=== PATIENT | female | born 1960 | race Two or more races ===

== ENCOUNTER 2016-12-09 19:03 | Emergency (ER) | payer MEDICAID ==
[~2016-12-09 19:03] MED LIST: DAYQUIL
[2016-12-09 19:12] VITALS: BP 108/88
== END 2016-12-09 20:53 | disposition left against medical advice (07) ==
LOC: ER 19:06
DX: M25.561 Pain in right knee (principal); Z53.21 Procedure and treatment not carried out due to patient leaving prior to being seen by health care provider

== ENCOUNTER 2016-12-10 12:26 | Emergency (ER) | payer MEDICAID ==
[2016-12-10 13:08] VITALS: BP 139/56
== END 2016-12-10 13:42 | disposition home or self-care (01) ==
LOC: ER 12:26
DX: M17.11 Unilateral primary osteoarthritis, right knee (principal); G89.29 Other chronic pain

== ENCOUNTER 2017-06-20 17:48 | Emergency (ER) | payer MEDICAID ==
[~2017-06-20] VITALS: Ht 152.4 cm; Wt 96.6 kg
[2017-06-20 17:58] VITALS: BP 137/81
[2017-06-20 19:21] LABS: Basophils # (auto) 0.1 uL; Basophils % (auto) 0.6 % (0.0-2.0); Eosinophils # (auto) 0.2 uL; Eosinophils % (auto) 1.7 % (0.0-7.0); Hematocrit 41.7 % (36.0-46.0); Lymphocytes # (auto) 4.5 uL; Lymphocytes % (auto) 41.2 % (10.0-50.0); Mean Corpuscular Hemoglobin 30.6 pg (28.0-32.0); Mean Corpuscular Hgb Conc. 33.7 g/dL (32.0-36.0); Mean Corpuscular Volume 90.8 fL (80.0-100.0); Mean Platelet Volume 9.2 fL (6.9-10.8); Monocytes # (auto) 0.7 uL; Monocytes % (auto) 6.2 % (0.0-12.0); Neutrophils # (auto) 5.5 uL; Neutrophils % (auto) 50.3 % (37.0-80.0); Nucleated Red Blood Cells % 0.1 %; Platelet Count (auto) 235 10^3/uL (140-450); Red Cell Distribution Width 13.3 % (11.8-14.3); White Blood Cell 10.8 10^3/uL (4.4-10.8)
[2017-06-20 19:50] LABS: Albumin 3.4 g/dL (3.4-5.0); Anion Gap 11 (5-15); Calcium 8.6 mg/dL (8.5-10.1); Carbon Dioxide 27 mmol/L (21-32); Chloride 107 mmol/L (98-107); GFR African American 103 mL/min; GFR Non-African American 85 mL/min; Glucose 109 mg/dL (74-106); Magnesium 2.5 mg/dL (1.6-2.6); Potassium 3.9 mmol/L (3.5-5.1); Sodium 145 mmol/L (136-145)
[2017-06-20 19:52] LABS: Alkaline Phosphatase 125 U/L (45-117); Aspartate Aminotransferase 31 U/L (15-37); BUN/Creatinine Ratio 18.7; Bilirubin, Total 0.4 mg/dL (0.2-1.0); Blood Urea Nitrogen 14 mg/dL (7-18); Total Protein 7.5 g/dL (6.4-8.2)
== END 2017-06-21 00:54 | disposition left against medical advice (07) ==
LOC: ER 17:48
DX: R07.89 Other chest pain (principal); Z53.21 Procedure and treatment not carried out due to patient leaving prior to being seen by health care provider
CPT/HCPCS: 36415; 71020; 80053; 83735; 84484; 85025; 93005

== ENCOUNTER 2022-04-29 08:42 | Inpatient (IN) | payer MEDICAID ==
[2022-04-29] VITALS (11 sets, daily range): BP systolic 95–122; BP diastolic 43–68
[~2022-04-29] VITALS: Ht 152.4 cm; Wt 89.7 kg
[~2022-04-29 08:42] MED LIST changes: +ACET325T82 PO; -DAYQUIL; +GABA-339 PO; +IBUP800T26 PO
[2022-04-29] MEDS ORDERED: ceFAZolin 1GM/50ML 100 ML IV ONE (09:00)
[2022-04-29] MEDS ORDERED: fentaNYL CITRATE 100 MCG/2 ML VL ONE (09:18)
[2022-04-29] MEDS ORDERED: MIDAZOLAM HCL 2MG/2ML 2ml VIAL (1mg/ml) ONE ×2 (09:18→10:35)
[2022-04-29] MEDS ORDERED: TETRACAINE 1% INJ 2 ML VIAL IJ ONE ×2 (09:18→09:20)
[2022-04-29] MEDS ORDERED: TRANEXAMIC ACID 20 ML ONE (09:18)
[2022-04-29] MEDS ORDERED: ROPIVACAINE 0.5% (5MG/ML) 20ML AMPULE IJ ONE (09:18)
[2022-04-29] MEDS ORDERED: VANCOMYCIN HCL 1000 MG VL ONE (09:21)
[2022-04-29] MEDS ORDERED: MORPHINE SULF PF 5 MG/10 ML VIAL ONE (09:21)
[2022-04-29] MEDS ORDERED: EPINEPHrine HCL 1 MG/1 ML AMP ONE (09:28)
[2022-04-29] MEDS ORDERED: ONDANSETRON HCL 4 MG/2 ML VIAL IV PRN (10:30)
[2022-04-29] MEDS ORDERED: NALBUPHINE HCL 10 MG/1ml INJECTION SUBCUT ONE (10:30)
[2022-04-29] MEDS ORDERED: ePHEDrine SULFATE 50 MG/ML AMP IV PRN (10:30)
[2022-04-29] MEDS ORDERED: HYDROmorphone HCL 2 MG/ML VL/or syr IV PRN (10:30)
[2022-04-29] MEDS ORDERED: DexAMETHasone SOD PHOS 10MG/1ML VIAL INJ IV PRN (10:30)
[2022-04-29] MEDS ORDERED: METOCLOPRAMIDE HCL 5MG/ml INJ 2ml VIAL IV PRN (10:30)
[2022-04-29] MEDS ORDERED: NALOXONE HCL 0.4 MG/ML VIAL IV PRN (10:30)
[2022-04-29] MEDS ORDERED: MIDAZOLAM HCL 2MG/2ML 2ml VIAL (1mg/ml) IV PRN (10:30)
[2022-04-29] MEDS ORDERED: LABETALOL HCL 5 MG/ML 4ML SYRINGE IV PRN (10:30)
[2022-04-29] MEDS ORDERED: diphenhdrAMINE HCL 50 MG/1 ML VL IV PRN (10:30)
[2022-04-29] MEDS ORDERED: DexAMETHasone SOD PHOS 10MG/1ML VIAL INJ ONE (10:35)
[2022-04-29] MEDS ORDERED: PROPOFOL 10 MG/ML 20 ML IV ONE (10:35)
[2022-04-29] MEDS ORDERED: oxyCODONE HCL 5MG TAB PO PRN (11:45)
[2022-04-29] MEDS: D5W/LACTATED RINGERS 1,000 ML IV SCH ×2 (11:45→21:45)
[2022-04-29] MEDS: KETOROLAC TROMETH 30 MG/ML 1ML VIAL IV SCH ×3 (12:20→19:00)
[2022-04-29] MEDS: ceFAZolin 2 GM in D5W 5% 100 ML IV SCH ×2 (15:19→23:00)
[2022-04-29] MEDS: ONDANSETRON HCL 4 MG/2 ML VIAL IV PRN (16:34)
[2022-04-29] MEDS: ACETAMINOPHEN 325 MG TAB PO SCH ×2 (17:35→19:00)
[2022-04-29] MEDS: PREGABALIN 25 MG CAP PO SCH (22:22)
[2022-04-30] VITALS (20 sets, daily range): BP systolic 92–130; BP diastolic 53–64
[2022-04-30] MEDS: KETOROLAC TROMETH 30 MG/ML 1ML VIAL IV SCH ×3 (00:12→12:37)
[2022-04-30] MEDS: ACETAMINOPHEN 325 MG TAB PO SCH ×3 (00:12→12:37)
[2022-04-30] MEDS ORDERED: ceFAZolin 1GM/50ML 100 ML IV ONE (00:51)
[2022-04-30] MEDS: D5W/LACTATED RINGERS 1,000 ML IV SCH (07:45)
[2022-04-30] MEDS: oxyCODONE HCL 5MG TAB PO PRN ×2 (08:40→16:14)
[2022-04-30] MEDS: PREGABALIN 25 MG CAP PO SCH (09:52)
[2022-04-30] MEDS ORDERED: ASPirin 81 mg TAB PO SCH (10:00)
[2022-04-30 10:53] LABS: Basophils # (auto) 0 10 ^3/uL (0-0.2); Eosinophils # (auto) 0 10 ^3/uL (0-0.8); Hematocrit 36.9 % (36.0-46.0); Hemoglobin 11.9 g/dL (12.2-16.2); Lymphocytes # (auto) 2.3 10 ^3/uL (0.4-5.4); Lymphocytes % (auto) 13.6 % (10.0-50.0); Mean Corpuscular Hemoglobin 29.3 pg (28.0-32.0); Mean Corpuscular Hgb Conc. 32.3 g/dL (32.0-36.0); Mean Corpuscular Volume 90.7 fL (80.0-100.0); Monocytes % (auto) 5.8 % (0.0-12.0); Neutrophils # (auto) 13.6 10 ^3/uL (1.6-8.6); Neutrophils % (auto) 80.6 % (37.0-80.0); Nucleated Red Blood Cells % 0.1 %; Red Blood Cells 4.07 10^6/uL (4.0-5.20); Red Cell Distribution Width 13.4 % (11.8-14.3); White Blood Cell 16.8 10^3/uL (4.4-10.8)
[2022-04-30 11:11] LABS: Calcium 8.9 mg/dL (8.5-10.1); Potassium 3.9 mmol/L (3.5-5.1)
[2022-04-30 11:14] LABS: BUN/Creatinine Ratio 20.2
[2022-04-30] MEDS: ONDANSETRON HCL 4 MG/2 ML VIAL IV PRN (12:38)
== END 2022-04-30 17:18 | disposition home health service (06) | DRG 326 ==
LOC: SUR 08:42 → TELE 11:39 → TELE-WESTW 15:25
PROVIDERS: ADMIT Orthopaedic Surgery; ATTEND Orthopaedic Surgery
PROC: 0SRD0J9 Replacement of Left Knee Joint with Synthetic Substitute, Cemented, Open Approach (ICD-10-PCS; principal; 2022-04-29 09:48)
DX: M17.12 Unilateral primary osteoarthritis, left knee (principal); D72.829 Elevated white blood cell count, unspecified; G62.9 Polyneuropathy, unspecified; G89.29 Other chronic pain; Z20.822 Contact with and (suspected) exposure to COVID-19
CPT/HCPCS: 36415; 73562; 80048; 85025; 86850; 86900; 86901; 97110; 97116; 97163; 97530; G0378; J0171; J0690; J1100; J1885; J2250; J2405; J2704; J7060